=== PATIENT | male | born 1965 | race Caucasian/White ===

== ENCOUNTER 2018-05-03 07:29 | Day surgery (SDC) | payer OTHER, SELFPAY ==
--- NOTE | 2018-05-03 | PATH_ITS ---
[facility] Accession Number: [id number] . 01 Material submitted: . PART A: ASCENDING COLON POLYP X5 PART B: TRANSVERSE COLON POLYP . 02 Diagnosis: A. Biopsy, Ascending Colon Polyps: Tubular adenoma involving multiple biopsy fragments. . B. Biopsy, Transverse Colon Polyp: Tubular adenoma involving single biopsy fragment. MRV/05/04/2018 . 02 Electronically signed: . Casey Torres MD, Pathologist NPI- [id number] . 01 Gross description: . Received two formalin-filled containers, both labeled with the patient's name: . A. In a container labeled ascending colon polyp x5, are multiple less than 0.1 cm to 0.3 cm portions of tissue, which are filtered, wrapped, and entirely submitted in cassette A. B. In a container labeled transverse colon polyp, are two 0.2-0.5 cm portions of tissue, entirely submitted in cassette B. ([id number]) /FRR . 02 Pathologist provided ICD-10: D12.2 . 02 CPT . 432522, 471177 Performed at: 01 [facility] [address] [id number] MD Bart Albrecht MD Phone: [phone] Performed at: 02 [facility] [place] [address] [address] [place], [place] [id number] MD Ana Dickson MD Phone: [phone]
[2018-05-03 08:26] VITALS: BP 141/84; PULSE 77; RESP 16; TEMP 36.3; O2SAT 96; BMI 34.2
--- NOTE | 2018-05-03 09:57 | PM.PREOP ---
Pre-operative Note Interval Note History & Physical reviewed/Exam performed by Physician: Yes Changes to H&P: No ASA Class (for procedural sedation): II
--- NOTE | 2018-05-03 09:58 | PM.OP.ENDO ---
Operative Date/Time/Diagnoses Date of procedure: 05/03/18 Procedure & Clinicians Study performed: Colonoscopy with snare polypectomy 5 mg midazolam. 100mcg fentanyl. Moderate conscious sedation was administered by the endoscopy nurse and supervised by the endoscopist. The following parameters were monitored oxygen saturation, heart rate, blood pressure, and response to care. Indications: Colon cancer screening. Personal history of colon polyps. Family history of colon cancer in 1st degree relative. Procedure Notes Procedure in detail: Prior to the procedure, history and physical was performed, and patient medications and allergies were reviewed. Preprocedure nursing history and assessment was reviewed. Patient identification and proposed procedure were verified by the physician and nurse in the procedure room. The physical status of the patient was reassessed after the procedure. After informed consent was obtained including risks, benefits, and alternatives, the scope was passed under direct vision. Throughout the procedure, the patient's blood pressure, pulse, and oxygen saturations were monitored continuously. The adult colonoscope was introduced through the anus and advanced to the cecum as identified by the appendiceal orifice and IC valve. The patient tolerated the procedure well. Bowel prep was deemed adequate to detect polyps greater than 5 mm. ZOLTAN and perianal exams were unremarkable. Retroflexion in the rectum revealed grade I internal hemorrhoids. Five 3-6 mm sessile and semisessile polyp were removed from the ascending colon using a cold snare and were retrieved. A 4mm sessile polyp was removed from the transverse colon with a cold snare and was retrieved. Impression: Internal hemorrhoids Six 3-6 mm polyps removed from the ascending and transverse colon Sedation minutes: 22 Complications: other (None. EBL minimal) Plan for aftercare: Follow up pathology results Repeat colonoscopy at a date to be determined based on pathology results Resume previous diet Resume home medications Discharge home with escort
[2018-05-03] MEDS: MIDAZOLAM 5 MG/5 ML VIAL IV (10:11)
[2018-05-03] MEDS: fentaNYL 250 MCG/5 ML INJ IV (10:12)
[2018-05-03] MEDS: SODIUM CHLORIDE 0.9% 1,000 ML 200 ML IV (10:12)
[2018-05-03 10:30] VITALS: BP 121/78; PULSE 77; RESP 16; TEMP 37.3; O2SAT 96
--- NOTE | 2018-05-03 10:32 | SUR.PHASEII ---
Pt arrived from [facility], awake, mildly drowsy. Abd soft. Denied pain.
[2018-05-03 10:39] VITALS: BP 114/75; PULSE 70; TEMP 36.5; O2SAT 96
--- NOTE | 2018-06-21 17:00 | PM.HP.1 ---
History of Present Illness Chief complaint: colonoscopy [id number] Patient History Social History household members: spouse Family & Social History Social History: household members spouse Meds Home Medications Medication Instructions Recorded Confirmed Type losartan 50 mg PO DAILY 05/03/18 05/03/18 History simvastatin 40 mg PO QPM 05/03/18 05/03/18 History Allergies Allergy/AdvReac Type Severity Reaction Status Date / Time No Known Drug Allergies Allergy Verified 05/03/18 08:36 Review of Systems Review of Systems All systems reviewed & are unremarkable except as noted in HPI and below Exam Vital Signs (past 8 hours): Oxygen Delivery Method Room Air Narrative Exam Narrative: Awake alert and oriented x3, pupils equal round reactive to light, regular rate rhythm, abdomen soft nontender nondistended, no lower extremity edema Assessment & Plan Assessment & Plan narrative: colon cancer screening
== END 2018-05-03 10:48 | disposition home or self-care (01) ==
PROVIDERS: Visit Provider Internal Medicine
PROC: 0DJD8ZZ Inspection of Lower Intestinal Tract, Via Natural or Artificial Opening Endoscopic (ICD-10-PCS; CPT 45378; principal; 2018-05-03 09:30)
DX: Z86.010 Personal history of colon polyps (principal); K64.0 First degree hemorrhoids; D12.2 Benign neoplasm of ascending colon; D12.3 Benign neoplasm of transverse colon; Z80.0 Family history of malignant neoplasm of digestive organs
CPT/HCPCS: 45385; J2250; J3010

== ENCOUNTER 2025-02-22 06:35 | Day surgery (SDC) | payer OTHER, SELFPAY ==
[2025-02-12 10:35] VITALS: BMI 34.9
--- NOTE | 2025-02-22 | PATH_ITS ---
[facility] Accession Number: [id number] No. of containers..01 Tissue . 01 Material submitted: . colon - COLON, ASCENDING . 01 Diagnosis: COLON, ASCENDING: Tubular adenoma(s). [facility] 02/27/20251305 Local . 01 Electronically signed: . Bart Albrecht MD, Pathologist NPI- [id number] . 01 Gross description: . Received in formalin labeled with two patient identifiers and ascending colon, are three [place] tissue fragments ranging from 0.2 to 0.3 cm. Entirely submitted in cassette A1. ([id number]) /KIYA 02/27/20251305 Local . 01 Pathologist provided ICD-10: D12.2 . 01 CPT . 685283 Specimen Comment: A courtesy copy of this report has been sent to [phone] Performed at: [address] [facility] [id number] MD Bart Albrecht MD Phone: [phone]
[2025-02-22 07:20] VITALS: BP 151/94; PULSE 96; RESP 16; TEMP 36.2; O2SAT 99
[2025-02-22] MEDS: LACTATED RINGERS 1,000 ML 42 ML IV (07:34)
--- NOTE | 2025-02-22 08:04 | PM.HP.IH.1 ---
History of Present Illness History of Present Illness Date Patient Seen: 02/22/25 Time Patient Seen: 08:05 Chief complaint: SDC Narrative: Casey is a 59-year-old man who presents for colonoscopy. His last colonoscopy was 3 years ago in [place] with a polyps found. He had a colonoscopy here with Dr. Arleen Carrion in 2019 with findings of tubular adenomas. No family history of colon cancer. [facility] Medical History (Updated 02/22/25 @ 08:06 by Nik Palencia MD) GERD (gastroesophageal reflux disease) SERENITY (obstructive sleep apnea) Impaired glucose tolerance HTN (hypertension) Gout Dyslipidemia Pre-diabetes Surgical History (Updated 02/12/25 @ 10:30 by Olimpia Villagran RN) Hx of vasectomy H/O colonoscopy Social History household members: spouse Smoking Status: Former smoker Meds Home Medications and Allergies Home Medications ?Medication ?Instructions ?Recorded ?Confirmed ?Type losartan 50 mg tablet 50 mg PO DAILY 05/03/18 02/22/25 History simvastatin 40 mg tablet 40 mg PO QPM 05/03/18 02/22/25 History colchicine 0.6 mg tablet (Colcrys) PO 02/12/25 History telmisartan 40 mg tablet 40 mg PO DAILY 02/12/25 02/12/25 History Allergies Allergy/AdvReac Type Severity Reaction Status Date / Time No Known Drug Allergies Allergy Verified 02/22/25 07:15 Exam Vital Signs (past 8 hours): - 02/22/25 07:20 Temperature 97.1 F L Pulse Rate 96 H Respiratory Rate 16 Blood Pressure 151/94 H Pulse Oximetry 99 Oxygen Delivery Method Room Air Oxygen Delivery Method Room Air Const General: healthy appearing Assessment & Plan Assessment and plan (1) History of colon polyps: Status: Acute Plan Colonoscopy for history of polyps Time-Based Coding :: [TOTAL MINUTES] spent with patient and on the chart (including review of chart, obtaining history, exam, reviewing outside data, placing orders, documenting exam and treatment plan, and counseling patient) on [DATE]. PROFEE Clinical Reimbursement Specialist Document charge(s): No
[2025-02-22 08:39] VITALS: BP 109/68; PULSE 73; RESP 12; TEMP 36.5; O2SAT 94
--- NOTE | 2025-02-22 08:41 | PM.OP.COLON ---
Operative Date/Time/Diagnoses Date of procedure: 02/22/25 Time of procedure: 08:41 Pre-op diagnosis: History of polyps Post-op diagnosis: same Procedure & Clinicians Study performed: Colonoscopy Same procedure(s) as scheduled: Yes Surgeon: Nik Palencia Anesthesia Type: MAC +/- Procedure Notes Procedure in detail: Surgeon: Nik Palencia MD Anesthesia: Debra Turner RATING EXAMINER Procedure: The patient was brought to the endoscopy suite, placed in left lateral decubitus position. The patient was connected to monitoring devices. A time-out was performed. Sedation was administered. Once the patient was adequately sedated, a digital rectal exam was performed and was normal. The scope was then inserted and advanced to the cecum where the appendiceal orifice was identified and photographed. The scope was then slowly withdrawn over greater than 6 minutes. The mucosa was thoroughly inspected. There was a 5 mm polyp in the ascending colon removed with a cold snare. The scope was retroflexed in the rectum. No other abnormalities were found. The scope was straightened and removed. The patient was awakened and brought to recovery. Scope withdrawal time: 11 minutes Sedation time: 14 minute Findings: 5 mm polyp in the ascending colon Estimated Blood Loss: 2 Complications: none Post-procedure Disposition: PACU
[2025-02-22 08:46] VITALS: BP 101/65; PULSE 89; RESP 16; O2SAT 95
[2025-02-22 08:50] VITALS: BP 133/80; PULSE 82; RESP 19; O2SAT 96
== END 2025-02-22 09:01 | disposition home or self-care (01) ==
PROVIDERS: PCP Nurse Practitioner Family; Referring Provider Surgery; Visit Provider Surgery
PROC: 0DJD8ZZ Inspection of Lower Intestinal Tract, Via Natural or Artificial Opening Endoscopic (ICD-10-PCS; CPT 45378; principal; 2025-02-22 08:15)
DX: Z12.11 Encounter for screening for malignant neoplasm of colon (principal); Z86.0101 Personal history of adenomatous and serrated colon polyps; Z87.891 Personal history of nicotine dependence; D12.2 Benign neoplasm of ascending colon
CPT/HCPCS: 45385; J2704; J7120